=== PATIENT | male | born 1985 | race Two or more races ===

== ENCOUNTER → 2020-09-18 | Outpatient (CLI) | payer OTHER ==
[2020-09-19 08:10] LABS: HBSAG SCREEN Negative (Negative); HCV ANTIBODY <0.1 (0.0-0.9); HIV SCREEN 4TH GENERATION WRFX Non Reactive (Non Reactive)
== END | disposition home or self-care (01) ==
LOC: LAB SHORT 18:05 → LAB EV 18:05
PROVIDERS: Chiropractor
DX: Z11.59 Encounter for screening for other viral diseases (principal); Z11.4 Encounter for screening for human immunodeficiency virus [HIV]; Z20.9 Contact with and (suspected) exposure to unspecified communicable disease
CPT/HCPCS: 84460; 86317; 86803; 87340; 87389

== ENCOUNTER → 2020-11-12 | Outpatient (CLI) | payer OTHER ==
[2020-11-13 08:10] LABS: HIV SCREEN 4TH GENERATION WRFX Non Reactive (Non Reactive)
== END | disposition home or self-care (01) ==
LOC: LAB SHORT 10:39 → LAB 10:39
PROVIDERS: General Practice
DX: Z20.9 Contact with and (suspected) exposure to unspecified communicable disease (principal)
CPT/HCPCS: 86803; 87389

== ENCOUNTER → 2020-11-17 | Outpatient (CLI) | payer OTHER | END | disposition home or self-care (01) | LOC: LAB 12:08 → LAB SHORT 12:08 | DX: Z11.52 Encounter for screening for COVID-19 (principal) | CPT/HCPCS: 86735; 86762; 86765; 86787 ==

== ENCOUNTER 2022-05-27 14:58 | Emergency (ER) | payer OTHER ==
[~2022-05-27] VITALS: Ht 193 cm; Wt 136.1 kg
[2022-05-28 08:11] LABS: HIV AB/P24 AG SCREEN Non Reactive (Non Reactive)
== END 2022-05-27 16:00 | disposition home or self-care (01) ==
LOC: ER 14:58
PROVIDERS: Student in an Organized Health Care Education/Training Program
DX: S61.031A Puncture wound without foreign body of right thumb without damage to nail, initial encounter (principal); W46.0XXA Contact with hypodermic needle, initial encounter; Z88.0 Allergy status to penicillin; Z77.21 Contact with and (suspected) exposure to potentially hazardous body fluids
CPT/HCPCS: 36415; 84460

== ENCOUNTER → 2023-10-13 | Outpatient (CLI) | payer BC, OTHER ==
[~2023-10-13] MED LIST: RALT400 PO; TRUVADA 200 MG1 EACH PO
[2023-10-15 06:31] LABS: HCV QNT BY NAAT (IU/ML) Not Detected; HCV QNT BY NAAT (LOG IU/ML) Not Detected; HCV QNT BY NAAT INTERP Not Detected (Not Detected)
[2023-10-15 08:10] LABS: HIV 1,2 COMBO ANTIGEN/ANTIBODY Negative (Negative)
== END | disposition home or self-care (01) ==
LOC: LAB 09:14 → LAB SHORT 09:14
PROVIDERS: Physician Assistant
DX: Z20.9 Contact with and (suspected) exposure to unspecified communicable disease (principal)
CPT/HCPCS: 87389; 87522

== ENCOUNTER → 2025-02-03 | Outpatient (CLI) | payer BC, OTHER ==
[2025-02-03 19:09] LABS: Alanine Aminotransfer (ALT/SGP 58.0 U/L (12-78); Albumin, Blood 4.2 g/dL (3.4-5.0); Albumin/Globulin Ratio 1.4 (0.8-1.8); Anion Gap 10.0 mmol/L (3-11); Aspartate Aminotrans (AST/SGOT 19.0 U/L (12-37); Bilirubin, Total 0.7 mg/dL (0.1-1.0); Blood Urea Nitrogen 14.0 mg/dL (8-24); CO2, Blood 28.0 mmol/L (21-32); Calcium, Blood 9.8 mg/dL (8.5-10.1); Chloride, Blood 106.0 mmol/L (98-108); Creatinine, Blood 0.96 mg/dL (0.60-1.20); Globulin, Blood 3.1 g/dL (2.2-4.0); Glucose, Blood 95.0 mg/dL (70-99); Potassium, Blood 3.9 mmol/L (3.5-5.5); Sodium, Blood 140.0 mmol/L (136-145); Total Protein, Blood 7.3 g/dL (6.4-8.2)
== END ==
LOC: LAB SHORT 10:00 → LAB 10:00
DX: E66.9 Obesity, unspecified (principal)
CPT/HCPCS: 80053; 83036